=== PATIENT | male | born 1960 | race Caucasian/White ===

== ENCOUNTER 2020-11-20 07:16 | Outpatient (CLI) | payer MEDICARE, MEDICAID | END 2020-11-20 23:59 | disposition home or self-care (01) | LOC: ROC 07:16 | PROVIDERS: ATTEND Radiology Radiation Oncology | DX: Z08 Encounter for follow-up examination after completed treatment for malignant neoplasm (principal); D32.0 Benign neoplasm of cerebral meninges | CPT/HCPCS: G2012; G2251 ==

== ENCOUNTER 2021-04-13 10:26 | Day surgery (SDC) | payer MEDICARE, MEDICAID ==
[~2021-04-13] VITALS: Ht 177.8 cm; Wt 96.8 kg
[2021-04-13] MEDS ORDERED: BACL20TA PO (11:27)
[2021-04-13] MEDS ORDERED: GABA600T7 PO (11:27)
[2021-04-13] MEDS ORDERED: OMEP-110 PO (11:27)
[2021-04-13] MEDS ORDERED: [UNRECOGNIZED DRUG - CODE] PO (11:27)
[2021-04-13] MEDS ORDERED: ATOR20TA86 PO (11:27)
[2021-04-13] MEDS ORDERED: METO25TA35 PO (11:27)
[2021-04-13] MEDS ORDERED: ESCI5SOL2 PO (11:27)
[2021-04-13] MEDS ORDERED: CHLORHEXIDINE 15 ML UDC PO ONE (11:30)
[2021-04-13] MEDS ORDERED: LACTATED RINGERS 1,000 ML IV SCH (11:30)
[2021-04-13 11:32] VITALS: BP 120/83
[2021-04-13] MEDS ORDERED: PROPOFOL 50 ML ONE (13:00)
[2021-04-13] MEDS ORDERED: PROPOFOL 10 MG/ML, 20ML ONE ×2 (13:44→14:03)
[2021-04-13] MEDS ORDERED: ONDANSETRON 2MG/ML, 2ML IVPush PRN (15:00)
[2021-04-13] MEDS ORDERED: LABETALOL 5MG/ML, 20ML IV PRN (15:00)
[2021-04-13] MEDS ORDERED: FENTANYL PF 100 MCG/2ML IV PRN (15:00)
[2021-04-13] MEDS ORDERED: EPHEDRINE 50 MG/ML, 1ML IVPush PRN (15:00)
[2021-04-13] MEDS ORDERED: ACETAMINOPHEN 325 MG TABLET PO PRN (15:00)
[2021-04-13] MEDS ORDERED: hydrALAzine 20 MG/ML, 1ML IV PRN (15:00)
[2021-04-13] MEDS ORDERED: PROMETHAZINE 25 MG/ML, 1ML IVPush PRN (15:00)
== END 2021-04-13 16:50 | disposition home or self-care (01) ==
LOC: OUT 10:26
PROVIDERS: ATTEND Internal Medicine Gastroenterology
DX: R19.5 Other fecal abnormalities (principal); D12.2 Benign neoplasm of ascending colon; D12.5 Benign neoplasm of sigmoid colon; D12.3 Benign neoplasm of transverse colon; K59.09 Other constipation; G82.50 Quadriplegia, unspecified; Z20.822 Contact with and (suspected) exposure to COVID-19; Z79.899 Other long term (current) drug therapy; Z91.041 Radiographic dye allergy status
CPT/HCPCS: 45385; 87635; 88305; 93005; J2704; J7120